=== PATIENT | female | born 1980 | race Caucasian/White ===

== ENCOUNTER → 2017-07-21 | Outpatient (CLI) | payer OTHER | LOC: FIMAGING 11:28 | PROVIDERS: ATTEND Obstetrics & Gynecology | DX: O28.5 Abnormal chromosomal and genetic finding on antenatal screening of mother (principal); O99.341 Other mental disorders complicating pregnancy, first trimester; F41.9 Anxiety disorder, unspecified; F32.9 Major depressive disorder, single episode, unspecified; Z3A.11 11 weeks gestation of pregnancy ==

== ENCOUNTER 2017-08-10 16:27 | Emergency (ER) | payer OTHER ==
[2017-08-10 16:33] VITALS: RESP 16; TEMP 98.4
--- NOTE | 2017-08-10 17:03 | EDPHY ---
H & P Time Seen by Provider: 08/10/17 16:46 HPI/ROS: CHIEF COMPLAINT: Blurry vision and headache HISTORY OF PRESENT ILLNESS: 14 weeks , mother and sister have clotting disorder. Today at 3:45 p.m. Notice black spots in her vision bilaterally, she covered each eye independently and it was still there. This was followed by squiggly lines and feeling that there is a black shade in the lower part of her left eye and she had trouble seeing her left hand. Right now she feels like it is a little bit darker in the left lower visual field. The left lower visual symptoms, patient not 100% sure if it is binocular or monocular. Not associated with diplopia or neck pain or recent fall or injury. Symptoms mild to moderate. REVIEW OF SYSTEMS: Eye: HPI ENT: no sore throat Cardiac: no chest pain or syncope Pulmonary: no cough or SOB Abdomen: no vomiting, diarrhea, abdominal pain Musculoskeletal: no back pain or neck pain Skin: no rash Neuro: no headache Constitutional: no fever : no urinary symptoms A comprehensive 10 point review of systems is otherwise negative aside from elements mentioned in the history of present illness. PAST MEDICAL HISTORY: Depression and anxiety, 14 weeks Family history: Sister with pro coagulant disorder diagnosed with she was having fertility issues, mother on anticoagulation for venous clotting Social history: Works at [id number] General Appearance: Alert and conversant, cooperative. Eyes: No scleral icterus. Pupils equal round reactive and extraocular motion intact. ENT, Mouth: Normal mucous membranes. Respiratory: Normal respiratory effort, breath sounds equal, lungs are clear to auscultation. Cardiovascular: Regular rate and rhythm. Gastrointestinal: Abdomen is soft and non tender. Neurological: Alert, face symmetric, normal motor and sensory in extremities. Normal [id number] and no pronator drift. Fluent speech. Visual vogel are intact to confrontation. Skin: Warm and dry, no rashes. Musculoskeletal: No peripheral edema. Psychiatric: Not agitated. Emergency Department course/MDM: Plan for MRI MRV with neurologic symptoms and history of pro coagulant disorder and her family. Consultation with Neurology. 1707: Discussed with Yonny Kennedy, agrees with above plan DC if MRI negative. 1819: discussed with patient. Differential broad, doubt medical emergency or surgical emergency, possible atypical migraine. discussed with Dr. Rodríguez opthalmology, agrees with plan, unlikely to be primarily eye problem. Smoking Status: Former smoker Constitutional: Initial Vital Signs Temperature (C) 36.9 C 08/10/17 16:30 Heart Rate 74 08/10/17 16:30 Respiratory Rate 16 08/10/17 16:30 Blood Pressure 120/77 08/10/17 16:30 O2 Sat (%) 98 08/10/17 16:30 O2 Delivery Mode Room Air Allergies/Adverse Reactions: Latex, Natural Rubber Allergy (Verified 08/10/17 16:29) Home Medications: Medication Instructions Recorded CLONAZEPAM 07/25/14 Sertraline HCl [Zoloft 100mg (*)] 100 mg PO DAILY 12/19/15 Prozac 10 MG (*) 08/10/17 Medical Decision Making - Diagnostics Imaging Results: Imaging Impressions Brain MRI 08/10/17 16:59 Impression: 1. A few tiny nonspecific hyperintense T2/FLAIR signal abnormalities in the white matter of right posterior frontal lobe periventricular and subcortical location. Differential diagnosis includes post-infectious/post-inflammatory sequela, atypical demyelinating disease, or migraine-related sequela. 2. Otherwise, normal MRI of the brain without contrast. If symptoms worsen, additional imaging may be necessary. Findings discussed with Pasquale Hunter M.D. at 18:15 hour, 08/10/2017. Head MRA 08/10/17 16:59 Impression: Normal MRA of the [place] as detailed above. Findings discussed with Pasquale Hunter M.D. at 18:15 hour, 08/10/2017. Head MRA 08/10/17 16:59 Impression: Normal MR venogram of the head. No evidence of sinus thrombosis. Findings discussed with Pasquale Hunter M.D. at 18:15 hour, 08/10/2017. Imaging: Discussed imaging studies w/ housecalls nurse Radiologist Differential Diagnosis: Differential considered including but not limited to migraine, venous thrombosis , ischemic stroke, primary eye problem. Consult/Admit Bed Type: [place] [id number] Departure - Departure Disposition: Home, Routine, Self-Care Clinical Impression: Visual disturbance Condition: Good Instructions: Magnetic Resonance Imaging (ED) Referrals: Lisa Evans MD [Primary Care Provider] - As per Instructions
[2017-08-10 18:45] VITALS: BP 120/74; PULSE 75; O2SAT 97
== END 2017-08-10 18:44 | disposition home or self-care (01) ==
DX: O99.89 Other specified diseases and conditions complicating pregnancy, childbirth and the puerperium (principal); H53.9 Unspecified visual disturbance; Z87.891 Personal history of nicotine dependence; Z91.040 Latex allergy status; Z3A.14 14 weeks gestation of pregnancy

== ENCOUNTER → 2017-08-16 | Outpatient (CLI) | payer OTHER | LOC: FIMAGING 09:34 | PROVIDERS: ATTEND Obstetrics & Gynecology | PROC: 10903ZU Drainage of Amniotic Fluid, Diagnostic from Products of Conception, Percutaneous Approach (ICD-10-PCS; principal; 2017-08-16) | DX: O28.5 Abnormal chromosomal and genetic finding on antenatal screening of mother (principal); O09.522 Supervision of elderly multigravida, second trimester; O99.342 Other mental disorders complicating pregnancy, second trimester; F41.9 Anxiety disorder, unspecified; Z3A.15 15 weeks gestation of pregnancy | CPT/HCPCS: 82106-90; 88235-90; 88291-90 ==

== ENCOUNTER → 2017-09-19 | Outpatient (CLI) | payer OTHER | LOC: FIMAGING 08:13 | PROVIDERS: ATTEND Obstetrics & Gynecology | DX: O09.512 Supervision of elderly primigravida, second trimester (principal); Z3A.20 20 weeks gestation of pregnancy ==

== ENCOUNTER → 2018-01-19 | Outpatient (CLI) | payer OTHER | LOC: FIMAGING 10:00 | PROVIDERS: ATTEND Obstetrics & Gynecology | DX: O09.523 Supervision of elderly multigravida, third trimester (principal); Z3A.38 38 weeks gestation of pregnancy ==

== ENCOUNTER 2018-02-06 17:00 | Inpatient (IN) | payer OTHER ==
[2018-02-07] MEDS ORDERED: LR 1,000 ML IV PRN (06:05)
[2018-02-07] MEDS ORDERED: MISOPROSTOL 200 MCG TAB PR PRN (06:05)
[2018-02-07] MEDS ORDERED: EPSOM SALT 454 GM TP PRN (06:05)
[2018-02-07] MEDS ORDERED: OXYTOCIN/RINGERS LACTATE 1,000 ML IV PRN (06:05)
[2018-02-07] MEDS ORDERED: OLIVE OIL 118 ML BTL MISC PRN (06:05)
[2018-02-07] MEDS ORDERED: LIDOCAINE 1% 300 MG/30 ML SDV SC PRN (06:05)
[2018-02-07] MEDS ORDERED: TERBUTALINE SULFATE 1 MG/ML VIAL IV PRN (06:05)
[2018-02-07] MEDS ORDERED: IBUPROFEN 600 MG TAB PO PRN (06:05)
[2018-02-07] MEDS ORDERED: LR 500 ML IV PRN (06:07)
[2018-02-07] MEDS ORDERED: OXYTOCIN/RINGERS LACTATE 500 ML IV SCH (06:30)
[2018-02-07] MEDS ORDERED: LIDOCAINE 1% 300 MG/30 ML SDV ONE (06:34)
[2018-02-07] MEDS ORDERED: TERBUTALINE SULFATE 1 MG/ML VIAL ONE (06:35)
[2018-02-07] MEDS ORDERED: AMMONIA AROMATIC 1 EACH AMP IH ONE (06:35)
[2018-02-07] MEDS ORDERED: MISOPROSTOL 200 MCG TAB ONE (06:35)
[2018-02-07] MEDS ORDERED: OXYTOCIN 10 UNIT/ML VIAL ONE (06:35)
[2018-02-07] MEDS ORDERED: OLIVE OIL 118 ML BTL ONE (06:35)
[2018-02-07 06:39] LABS: PLATELET COUNT 131 10^3/uL (150-400)
--- NOTE | 2018-02-07 10:38 | GHP ---
DATE OF ADMISSION: 02/07/2018 ADMITTING DIAGNOSIS: 1. Intrauterine at 40 weeks and 5 days 2. Induction of labor secondary to postdates. HISTORY OF PRESENT ILLNESS: Patient is a 37-year-old, 2, para 0-0-1-0 at 40 weeks 5 days with an estimated due date 02/02/18 by LMP 04/28/17 and consistent with first trimester ultrasound at 9 weeks 3 days. Patient presents to labor and delivery for induction of labor secondary to postdates. Patient had a Prescott bulb placed in the office yesterday for cervical ripening. Cervix was found to be 1 cm dilated, long and thick. There were no issues placing the Prescott bulb. The patient did well overnight, had some mild cramping, and then presented at 6 a.m. this morning for induction with Pitocin. The patient states good movement noted. She is feeling some mild contractions. Denies any leakage of fluid or vaginal bleeding. Patient has good care at [facility] and presented in her first trimester. is complicated by advanced maternal age. 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 Patient saw [facility] and had an amniocentesis done that revealed a normal genetic female. Patient is Rh negative and received RhoGAM at 28 weeks. Patient has a history of depression, anxiety, and is stable on medications. She is followed by Dr. Julian. She was weaned off Klonopin during the , but plans on restarting and not . Patient did develop anemia of and is tolerating iron. She received Tdap. GBS culture is negative. PAST OB HISTORY: Patient had a therapeutic in 2002 without complications. PAST [employer] HISTORY: Age of menarche is 13. Cycles every 28 days for 4 days. LMP 04/28/17. Positive test 05/31/17. Patient denies a history of abnormal Pap smears as well as exposure to sexually transmitted diseases. 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 CURRENT MEDICATIONS: vitamins, Lamictal 150 mg, Seroquel 25 mg, Zoloft 100 mg, and iron. ALLERGIES: Latex. MEDICAL HISTORY: Depression, anxiety, and anemia. PAST SURGICAL HISTORY: Therapeutic in 2002. FAMILY HISTORY: Mother is bipolar. Father has depression, anxiety. Mother and sister both with a clotting disorder, but patient had negative workup. Father and sister with hypothyroidism. SOCIAL HISTORY: Patient is and lives with her . She is a dermatology administrative sales assistant. Patient denies any current alcohol, tobacco, or illicit drug use. Patient does have a history of alcohol and tobacco abuse in the past.. REVIEW OF SYSTEMS: 10-point review of systems is negative. Pertinent positives noted in HPI. LABS: 1st trimester H and H 11.9 and 34.7, platelets 182. AB negative. Antibody negative. RPR nonreactive. Rubella immune. Hepatitis B surface antigen negative. HIV negative. Standard panel negative. TSH 2.65. UA and culture negative. Pap smear, GC and chlamydia cultures all negative. Innatal revealed monosomy X. Amnio was negative. Third trimester H and H 10.7 and 31.0. One-hour Glucola 90. GBS culture is negative. PHYSICAL EXAMINATION: VITAL SIGNS: Stable on admission. Patient is afebrile at 36.4, blood pressure 115/77, heart rate 77, respiration 18. GENERAL: Patient is a well-nourished, well-developed female, alert and oriented x3. No apparent distress. SKIN: Warm, dry, without rash. NEURO: Grossly intact. CARDIOVASCULAR: Regular rate and rhythm. LUNGS: Clear to auscultation bilaterally. ABDOMEN: Gravid, soft, nontender. PELVIC: Deferred. Prescott bulb still in place. EXTREMITIES: Normal to inspection without calf tenderness or edema. ASSESSMENT/PLAN: Patient is a 37 year-old, 2, para 0-0-1-0 at 40 weeks 5 days for a postdate induction. 1. Admit to labor and delivery for induction of labor. 2. Pitocin already started, and currently at 6 mu/minute. Continue per protocol. 3. Group B streptococcus culture is negative, so no prophylaxis is needed. 4. Patient is open to an epidural. 5. Anticipate spontaneous vaginal delivery. /[id number]/MODL MTDD
[2018-02-07] MEDS ORDERED: PHENYLEPHRINE HCL 100 MCG/ML SYR ONE (11:39)
[2018-02-07] MEDS ORDERED: BUPIVACAINE 0.25% 30 ML SDV ONE (11:39)
[2018-02-07] MEDS ORDERED: fentaNYL 2MCG/ML/BUP 0.1% RTU 100 ML BAG EP ONE (11:39)
[2018-02-07] MEDS ORDERED: fentaNYL 100 MCG/2 ML INJ ONE (11:40)
--- NOTE | 2018-02-07 12:50 | OBPROG ---
Labor Progress Note Assessment/Plan: Assessment: 37 y/o @ 40 5/7 wks for postdate IOL Plan: Cont current management Pitocin at 10 mu/min, cont per protocol s/p epidural AROM - mod amount light meconium stained fluid; JIG WORKER notified FHTs - Cat I tracing, reassuring Anticipate 02/07/18 12:47 Subjective/Intrapartum Course: 02/07/18 12:49 Pt is comfortable, s/p epidural. Objective: 02/07/18 06:25 Patient ABO/Rh AB NEGATIVE 02/07/18 06:25 - SVE Dilation (cm): 6 Effacement (%): 90 Station: 0 Membranes: AROM Amniotic Fluid Color: Meconium Stained - Contraction Pattern Assessment Current Contraction Pattern: Regular (q2-3 min) - FHR Assessment Rojas FHR (bpm): 140 FHR Pattern Variability: Moderate FHR Category: 1 - Procedures Non-surgical Procedures: Amniotomy - AP Antepartum Course: 02/07/18 12:50 IUP @ 40 5/7 weeks; AMA with Monosomy X on Innatal screen but negative Amnio. Pt with h/o depression and anxiety-stable on Zoloft and Seroquel; plans to restart Klonopin pp and will bottle feed. GBS negative. Oxytocin Orders Assessment - Pre-Induction/Augmentation Assessment Gestational Age: 40 week(s) and 5 day(s) ICD10 Worksheet Patient Problems: Problems Problem Status Onset Encounter for induction of labor Acute Post-dates Acute
[2018-02-07] MEDS ORDERED: PHENYLEPHRINE HCL 100 MCG/ML SYR IVP PRN (13:33)
[2018-02-07] MEDS ORDERED: ONDANSETRON 4 MG/2 ML VIAL IVP PRN (13:33)
--- NOTE | 2018-02-07 13:35 | POSTANESTH ---
Post Anesthetic Evaluation Cardiovascular Status: Normal, Stable, Similar to Pre-Op Cond Respiratory Status: Normal, Stable, Similar to Pre-op Cond. Level of Consciousness/Mental Status: Can Participate in Eval, Alert and Oriented Pain Control: Adequate, Prn Tx Ordered Nausea/Vomiting Control: Adequate, Prn Tx Ordered Complications Possibly Related to Anesthesia: None Noted
--- NOTE | 2018-02-07 13:38 | PREANESOB ---
Obstetric Pre-Anesthesia Info - General Info Proposed Procedure: Labor and delivery with pitocin. : 2 Para: 0 WILLEM: 02/02/18 Gestational Age: 40 week(s) and 5 day(s) - Info Status: Postmature Monitors: External FHR Baseline (bpm): 135 FHR Pattern: Reassuring - Labor Status Cervical Dilation per last OB SVE: 6 Station per last OB SVE: 0 Amniotic Fluid Color: Meconium Stained Pitocin: In Use Indications for Labor Analgesia: Induction of Labor, Pain Control Labor Epidural: Proposed Anesthesia ROS: Breast Bx. Allergies/Adverse Reactions: Allergy/AdvReac Type Severity Reaction Status Date / Time Latex, Natural Rubber Allergy Verified 08/10/17 16:29 Home Medications: Medication Instructions Recorded Sertraline HCl [Zoloft 100mg (*)] 50 mg PO DAILY 12/19/15 QUEtiapine FUMARATE [Seroquel 25 12.5 mg PO DAILY 02/07/18 mg (*)] lamoTRIgine [Lamictal] 150 mg PO 02/07/18 Visit Medications: Generic Name Dose Route Start Last Admin Trade Name Freq PRN Reason Stop Dose Admin Diphenhydramine HCl 25 - 50 mg 02/07/18 13:33 Benadryl Injection IVP 08/06/18 13:32 Q6HRS PRN Itching Lactated Ringer's 1,000 mls @ 0 mls/hr 02/07/18 06:05 Lr IV 02/08/18 06:04 PRN PRN SEE PROTOCOL CONDITIONS Protocol Per Protocol Oxytocin/Lactated Ringer's 1,000 mls @ 125 mls/hr 02/07/18 06:05 Pitocin 20 Units/Lr (Premix) IV PRN PRN Post bleeding Lactated Ringer's 500 mls @ 500 mls/hr 02/07/18 06:07 Lr IV 02/08/18 06:07 PRN PRN Maternal Hypotension Oxytocin/Lactated Ringer's 500 mls @ 0 mls/hr 02/07/18 06:30 Pitocin 30 Units/Lr (Premix) IV 08/06/18 06:29 CONT [facility] Protocol Per Protocol Fentanyl/Bupivacaine HCl 100 mls @ 0 mls/hr 02/07/18 14:00 Fentanyl/Bupivacaine/Ns 2 Mcg/Ml 0.1% (Premix EP 02/17/18 13:59 CONT [facility] Protocol As Directed Lactated Ringer's 500 mls @ 0 mls/hr 02/07/18 14:00 Lr IV 08/06/18 13:59 CONT [facility] As Directed Ibuprofen 600 mg 02/07/18 06:05 Motrin PO ONCE PRN post , pain Lidocaine HCl 300 mg 02/07/18 06:05 Lidocaine Hcl 1% SC 08/06/18 06:04 ONCE PRN episiotomy Magnesium Sulfate 454 gm 02/07/18 06:05 Epsom Salt TP 08/06/18 06:04 Q1H PRN perineal discomfort Misoprostol 800 - 1,000 mcg 02/07/18 06:05 Cytotec DC ONCE PRN Vaginal Atony/Bleeding [place] Oil 118 ml 02/07/18 06:05 Sweet Oil MISC 08/06/18 06:04 ONCE PRN perineal massage Ondansetron HCl 4 mg 02/07/18 13:33 Zofran IVP 02/08/18 13:32 Q4HRS PRN Nausea/Vomiting, Can't Take PO Phenylephrine HCl 100 mcg 02/07/18 13:33 Neosynephrine IVP 08/06/18 13:32 .Q2M PRN Hypotension Terbutaline Sulfate 0.25 mg 02/07/18 06:05 Brethine IV 08/06/18 06:04 ONCE PRN Tachysystole Discontinued Medications Generic Name Dose Route Start Last Admin Trade Name Freq PRN Reason Stop Dose Admin Ammonia (Aromatic Spirit) Confirm 02/07/18 06:35 Ammonia Aromatic Administered 02/07/18 06:36 Dose 1 each IH .STK-MED ONE Bupivacaine HCl Confirm 02/07/18 11:39 Sensorcaine 0.25% Sdv Administered 02/07/18 11:40 Dose 30 ml .ROUTE .STK-MED ONE Fentanyl Confirm 02/07/18 11:40 Sublimaze Administered 02/07/18 11:41 Dose 100 mcg .ROUTE .STK-MED ONE Fentanyl/Bupivacaine HCl Confirm 02/07/18 11:39 Fentanyl/Bupivacaine/Ns 2 Mcg/Ml 0.1% (Premix Administered 02/07/18 11:40 Dose 100 ml EP .STK-MED ONE Lidocaine HCl Confirm 02/07/18 06:34 Lidocaine Hcl 1% Administered 02/07/18 06:35 Dose 300 mg .ROUTE .STK-MED ONE Misoprostol Confirm 02/07/18 06:35 Cytotec Administered 02/07/18 06:36 Dose 1,000 mcg .ROUTE .STK-MED ONE [place] Oil Confirm 02/07/18 06:35 Sweet Oil Administered 02/07/18 06:36 Dose 118 ml .ROUTE .STK-MED ONE Oxytocin Confirm 02/07/18 06:35 Pitocin Administered 02/07/18 06:36 Dose 40 unit .ROUTE .STK-MED ONE Phenylephrine HCl Confirm 02/07/18 11:39 Neosynephrine Administered 02/07/18 11:40 Dose 1,000 mcg .ROUTE .STK-MED ONE Terbutaline Sulfate Confirm 02/07/18 06:35 Brethine Administered 02/07/18 06:36 Dose 1 mg .ROUTE .STK-MED ONE - Anesthesia History Response to Local Anesthetics: Normal Anesthesia & Operative History: No Prior Problems Family Anesthesia History: Negative - Social History Substance Use/Abuse: Denies (Patient quit smoking with .) - Vital Signs Blood Pressure: 115/76 Heart Rate: 74 Height/Weight (Nursing): Height 170.18 cm Weight 79.379 kg - Focused Exam Neck exam: FROM Mallampati Score: Class 1 Mouth exam: normal dental/mouth exam Pulmonary: no respiratory distress Cardiovascular: regular rate and rhythym Labs: 02/07/18 06:25 Patient ABO/Rh AB NEGATIVE 02/07/18 06:25 - Plan Anesthetic Plan: CSE Consent Signed and on Chart: Yes Patient/Guardian Understands and Agrees to Plan: Yes Urgent/Emergent Case: Tiesha chávez completed preop but documented later for safe timely pt care
[2018-02-07] MEDS ORDERED: LR 500 ML IV SCH (14:00)
[2018-02-07] MEDS ORDERED: fentaNYL 2MCG/ML/BUP 0.1% RTU 100 ML EP SCH (14:00)
--- NOTE | 2018-02-07 14:55 | OBPROG ---
Labor Progress Note Assessment/Plan: Assessment: 37 y/o @ 40 5/7 wks for postdate IOL Plan: Continue current management Pt is feeling some pressure Complete, +2 station on exam FHTs - Cat II tracing with intermittent variable decels Will start pushing with the pt 02/07/18 14:52 Subjective/Intrapartum Course: 02/07/18 12:49 Pt is comfortable, s/p epidural. 02/07/18 14:54 Pt is starting to feel pressure. She had some lower abdominal pain, but pushed her bolus button and pain now resolved. Objective: 02/07/18 06:25 Patient ABO/Rh AB NEGATIVE 02/07/18 06:25 Temp Pulse Resp BP Pulse Ox 74 115/76 02/07/18 13:49 02/07/18 13:49 - SVE Dilation (cm): 10 Effacement (%): 100 Station: -2 Membranes: AROM Amniotic Fluid Color: Meconium Stained - Contraction Pattern Assessment Current Contraction Pattern: Regular (q2-3 min) - Procedures Non-surgical Procedures: Amniotomy - AP Antepartum Course: 02/07/18 12:50 IUP @ 40 5/7 weeks; AMA with Monosomy X on Innatal screen but negative Amnio. Pt with h/o depression and anxiety-stable on Zoloft and Seroquel; plans to restart Klonopin pp and will bottle feed. GBS negative. Oxytocin Orders Assessment - Pre-Induction/Augmentation Assessment Gestational Age: 40 week(s) and 5 day(s) ICD10 Worksheet Patient Problems: Problems Problem Status Onset Encounter for induction of labor Acute Meconium in amniotic fluid Acute Post-dates Acute - ICD10 Problem Qualifiers (1) Meconium in amniotic fluid
[2018-02-07] MEDS ORDERED: SIMETHICONE 80 MG TAB CHEW PO PRN (16:45)
[2018-02-07] MEDS ORDERED: oxyCODONE IR 5 MG TAB PO PRN (16:45)
[2018-02-07] MEDS ORDERED: HYDROCORTISONE 0.5% CREAM TP PRN (16:45)
--- NOTE | 2018-02-07 16:56 | OBDEL ---
Info Type: Vaginal Presentation at Delivery: Vertex (Direct OP) L&D Analgesia/Anesthesia Type: Epidural GBS+: No - Infant Care Provider Surgical Supervisor/FREIGHT BRAKEMAN: Shalonda Kaufman - Hospital Course Intrapartum: 02/07/18 12:49 Pt is comfortable, s/p epidural. 02/07/18 14:54 Pt is starting to feel pressure. She had some lower abdominal pain, but pushed her bolus button and pain now resolved. Indications for Delivery: Elective (IOL-postdates) Vaginal Delivery - Delivery Provider Delivery Physician/CNM: Lesa Watkins - Labor and Delivery Onset of Contractions Date: 02/07/18 Onset of Contractions Time: 11:00 Onset of Contractions Type: Induced Rupture of Membranes Date: 02/07/18 Rupture of Membranes Time: 12:41 Rupture of Membranes Type: Artificial Amniotic Fluid Color: Meconium Stained Dilation Complete Date: 02/07/18 Dilation Complete Time: 14:50 Placenta Delivery Date: 02/07/18 Placenta Delivery Time: 16:31 Total Hours of Labor: 5 Non-surgical Procedures: Amniotomy Laceration: Other (Specify) (Midline vaginal lac and right vaginal sidewall) Repair: 3-0, Vicryl Vaginal Sponge Count Correct: Yes Vaginal Needle Count Correct: Yes Vaginal Sweep Performed: Yes EBL: 300 cc Delivery Events: Nuchal Cord (loose x 1 - slipped on perineum) - Medications Labor Augmentation/Induction Methods Used: Pitocin Labor Augmentation/Induction Indication: Post Dates Data WILLEM: 02/02/18 Gestational Age: 40 week(s) and 5 day(s) Rojas Delivery Date: 02/07/18 Delivery Time: 16:26 Sex of : Female ("[place]") Score (1 Min): 8 Score (5 Min): 9 ICD10 Worksheet Patient Problems: Problems Problem Status Onset Encounter for induction of labor Acute Meconium in amniotic fluid Acute Post-dates Acute (spontaneous vaginal delivery) Acute - ICD10 Problem Qualifiers (1) Meconium in amniotic fluid (2) (spontaneous vaginal delivery)
[2018-02-07] MEDS: ACETAMINOPHEN 325 MG TAB PO SCH (18:24)
[2018-02-08] MEDS: IBUPROFEN 600 MG TAB PO SCH ×4 (00:25→18:43)
[2018-02-08] MEDS: ACETAMINOPHEN 325 MG TAB PO SCH ×4 (00:25→18:42)
[2018-02-08] MEDS ORDERED: QUEtiapine FUMARATE 25 MG TAB PO SCH (09:00)
[2018-02-08] MEDS ORDERED: SERTRALINE HCL 50 MG TAB PO SCH (09:00)
[2018-02-08] MEDS ORDERED: lamoTRIgine 100 MG TAB PO SCH ×3 (09:00→21:00)
[2018-02-08] MEDS: DOCUSATE SODIUM 100 MG CAP PO PRN ×2 (09:23→22:20)
[2018-02-08] MEDS: FERROUS SULFATE 140 MG TAB.ER PO SCH (09:23)
--- NOTE | 2018-02-08 14:09 | OBPP ---
Progress Note Assessment/Plan: Assessment: PPD 1 s/p bipolar/depr/anxiety on meds difficult latching Plan: routine care, baby possibly needed frenulum clipped, anemia on iron 02/08/18 14:06 Subjective/ Course: 02/08/18 14:07 Pt doing ok. got some sleep while partner watched baby. frustrated by difficult latch. worried about baby's weight. Needs to hydrate well. pumping and no colostrum yet. bld has decreased a bit. urinating ok but control affected. Objective: 02/07/18 06:25 Patient ABO/Rh AB NEGATIVE 02/07/18 06:25 Temp Pulse Resp BP Pulse Ox 36.5 C 83 16 115/76 97 02/08/18 00:47 02/08/18 09:00 02/08/18 00:47 02/08/18 09:00 02/08/18 09:00 Uterine Position/Fundal Height: Umbilicus -1 Uterine Tone: Firm Physical Exam - Physical Exam Abdomen: non-tender, soft, other (FF at umb) Extremities: non-tender, pedal edema (mild) Skin: normal color, warm/dry Neuro/Psych: alert, normal mood/affect
[2018-02-08] MEDS: SERTRALINE HCL 50 MG TAB PO SCH ×2 (22:20→22:35)
[2018-02-08] MEDS: QUEtiapine FUMARATE 25 MG TAB PO SCH ×2 (22:21→22:32)
[2018-02-09] MEDS: IBUPROFEN 600 MG TAB PO SCH ×2 (00:55→09:06)
[2018-02-09] MEDS: ACETAMINOPHEN 325 MG TAB PO SCH ×2 (01:00→09:06)
[2018-02-09] MEDS: FERROUS SULFATE 140 MG TAB.ER PO SCH (09:06)
[2018-02-09] MEDS: DOCUSATE SODIUM 100 MG CAP PO PRN (09:08)
[2018-02-09 09:26] VITALS: BP 113/69
--- NOTE | 2018-02-09 11:18 | OBGCSDC ---
General Delivery Information - General Info : 2 Para: 1 Abortions: 1 Type: Vaginal L&D Analgesia/Anesthesia Type: Epidural Admission Date: 02/07/18 Labs: Patient ABO/Rh AB NEGATIVE 02/07/18 06:25 Hct 34.1 % (38.0-47.0) L 02/07/18 06:25 - Hospital Course Antepartum: 02/07/18 12:50 IUP @ 40 5/7 weeks; AMA with Monosomy X on Innatal screen but negative Amnio. Pt with h/o depression and anxiety-stable on Zoloft and Seroquel; plans to restart Klonopin pp and will bottle feed. GBS negative. Intrapartum: 02/07/18 12:49 Pt is comfortable, s/p epidural. 02/07/18 14:54 Pt is starting to feel pressure. She had some lower abdominal pain, but pushed her bolus button and pain now resolved. : 02/08/18 14:07 Pt doing ok. got some sleep while partner watched baby. frustrated by difficult latch. worried about baby's weight. Needs to hydrate well. pumping and no colostrum yet. bld has decreased a bit. urinating ok but control affected. 02/09/18 11:14 Pt is doing well. She is feeling better with good pain control from Ibuprofen and Tylenol. She is ambulating and voiding well and has min lochia. She has a + BM this am and it was ok. BF is going better, they tried donor milk today and is pumping and using lanolin and gel pads for nipple pain. They are ready to d/c home today and feeling good support. Vaginal - Delivery Provider Delivery Physician/CNM: Lesa Watkins - Diagnosis Labor: Induced Rupture of Membranes Type: Artificial Amniotic Fluid Color: Meconium Stained Laceration: Other (Specify) (Midline vaginal lac and right vaginal sidewall) Repair: 3-0, Vicryl Delivery Events: Nuchal Cord (loose x 1 - slipped on perineum) - Procedures Non-surgical Procedures: Amniotomy - Delivery Non-surgical Procedures: Amniotomy EBL: 300 cc [place] Data WILLEM: 02/02/18 Gestational Age: 41 week(s) and 0 day(s) Rojas Delivery Date: 02/07/18 Delivery Time: 16:26 Sex of : Female [place] Weight (gm): 3122 g Score (1 Min): 8 Score (5 Min): 9 Discharge Information - Discharge Information Prescriptions: Ibuprofen [Motrin (*)] 600 mg PO Q6H #30 tab Condition: Good Instruction/Follow Up: Four Weeks, Six Weeks
--- NOTE | 2018-02-09 11:18 | OBPP ---
Progress Note Assessment/Plan: Assessment: 37 y/o PPD #2 s/p doing well. Plan: D/c home today with Rx Ibuprofen. Follow-up @ [facility] 4 and 6 weeks. 02/09/18 11:17 Subjective/ Course: 02/08/18 14:07 Pt doing ok. got some sleep while partner watched baby. frustrated by difficult latch. worried about baby's weight. Needs to hydrate well. pumping and no colostrum yet. bld has decreased a bit. urinating ok but control affected. 02/09/18 11:14 Pt is doing well. She is feeling better with good pain control from Ibuprofen and Tylenol. She is ambulating and voiding well and has min lochia. She has a + BM this am and it was ok. BF is going better, they tried donor milk today and is pumping and using lanolin and gel pads for nipple pain. They are ready to d/c home today and feeling good support. Objective: 02/07/18 06:25 Patient ABO/Rh AB NEGATIVE 02/07/18 06:25 Temp Pulse Resp BP Pulse Ox 36.9 C 77 14 113/69 96 02/09/18 08:00 02/09/18 08:00 02/09/18 08:00 02/09/18 08:00 02/09/18 08:00 Uterine Position/Fundal Height: Umbilicus -2 Uterine Tone: Firm Physical Exam - Physical Exam General Appearance: alert, no apparent distress Neck: non-tender, full range of motion, supple Respiratory: chest non-tender, lungs clear, normal breath sounds Cardiac/Chest: regular rate, rhythm Abdomen: normal bowel sounds Extremities: swelling (no), Katerine's sign (neg)
== END 2018-02-09 14:30 | disposition home or self-care (01) | DRG 775 ==
LOC: FLD 02-07 05:57 → FOB 02-07 19:42
PROVIDERS: ADMIT Obstetrics & Gynecology; ATTEND Obstetrics & Gynecology
PROC: 10E0XZZ Delivery of Products of Conception, External Approach (ICD-10-PCS; principal; 2018-02-07)
PROC: 10907ZC Drainage of Amniotic Fluid, Therapeutic from Products of Conception, Via Natural or Artificial Opening (ICD-10-PCS; principal; 2018-02-07)
PROC: 3E033VJ Introduction of Other Hormone into Peripheral Vein, Percutaneous Approach (ICD-10-PCS; principal; 2018-02-07)
PROC: 0KQM0ZZ Repair Perineum Muscle, Open Approach (ICD-10-PCS; principal; 2018-02-07)
DX: O48.0 Post-term pregnancy (principal); Z37.0 Single live birth; Z3A.40 40 weeks gestation of pregnancy; O70.1 Second degree perineal laceration during delivery; O69.82X0 Labor and delivery complicated by other cord entanglement, without compression, not applicable or unspecified; O99.344 Other mental disorders complicating childbirth; F41.8 Other specified anxiety disorders
CPT/HCPCS: J2370; J2590; J3010; J3105

== ENCOUNTER → 2018-02-13 | Outpatient (CLI) | payer OTHER | LOC: FLACT 11:34 | PROVIDERS: ATTEND Obstetrics & Gynecology | DX: Z39.1 Encounter for care and examination of lactating mother (principal) | CPT/HCPCS: G0463 ==

== ENCOUNTER → 2018-11-23 | Outpatient (CLI) | payer OTHER | LOC: FIMAGING 16:27 ==